=== PATIENT | female | born 1945 | race Caucasian/White ===

== ENCOUNTER → 2016-12-22 | Outpatient (CLI) | payer MEDICARE ==
[~2016-12-22] MED LIST: ACETAMINOPHEN PO; ALLEGRA PO; AMBIEN PO; ARTHROTEC 501 TAB.EC PO; ASPIRIN PO; ASPIRIN81 M1 PO; ASPIRIN81 M2 PO; CALCIUM + D 6001 TA1 PO; CALCIUM 500 + D1 TAB PO; CERTAGEN PO; CLARITIN10 M3 PO; CLARITIN10 MG PO; DIABETIC TUSSIN; DITROPAN X15 MG/BOTT PO; FOLBIC; GLUCOPHAGE XR500 MG PO; HUMALOG100 U/ML SUBQ; HUMULIN N100 U/ML SQ; HUMULIN R100 U/ML; IBUPROFEN PO; IBUPROFEN100 MG PO; INSULIN; KAYEXALATE453.6 GM PO; LANTUS100 U/ML; LASIX20 MG PO; LEVEMIR; LEVOXYL100 MC1 PO; LIPITOR PO; LOC PO; LORTAB 5/500 TA1 TA1 PO; LOVASTATIN20 MG PO; METFORMIN PO; MEVACOR PO; MULTIPLE VITAMI1 T11 PO; NASACORT AQ16.5 GM; NASONEX17 GM; NEURONTIN300 MG PO; NIFEREX-150150 MG PO; NOVOLOG100 U/ML SUBQ; PAXIL PO; PAXIL30 MG PO; PRILOSEC PO; PRILOSEC20 MG PO; SUDAFED PO; SYNTHROID PO; TIZANIDINE HCL4 M1 PO; VITAMIN C500 M1 PO; levoxyl; xyzol
--- NOTE | ~2016-12-22 | BD1 ---
[facility] A Service of [facility] RADIOLOGY TEXT RESULTS PATIENT: MEÑO SPARROW LOCATION: [facility] : 41 UNIT #: [id number] AGE: [address]: Ginger Adan MD SEX: F ORDER DR: [id number] [facility] [address] [place], [place] [address] [id number] O MR#: [id number] Acc #: [id number] NAME: MEÑO SPARROW. : 1945 SEX: F STUDY DATE/TIME: 12/22/2016 10:26 UNIT: [facility] ROOM: STUDY DESCRIPTION: BD Dexa Bone Dens 1+ Site Attending Physician: Ginger Adan M.D. Referring Physician: Ginger Adan M.D. Ordering Physician: Ginger Adan M.D. Primary Care Physician: Ginger Adan M.D. MEDICAL IMAGING REPORT This report is preliminary unless electronic signature is present EXAM DXA scan 12/22/2016 HISTORY Status post menopause with no hormone replacement therapy. Osteopenia. Right hip surgery in 2005. Thyroid medication for 10 years. FINDINGS Bone mineral density in the lumbar spine from L1-L4 was 1.385 g/cm2 which is 3.1 standard deviations above the mean when compared to the young adult reference population which is within the range of normal. This is 5.4 standard deviations above the mean when compared to the age-matched population. Compared with 12/22/2014 there has been a decrease in bone mineral density in the lumbar spine of 9.2%. Bone mineral density in the left femoral neck was 0.45 g/cm2 which is 3.6 standard deviations below the mean when compared to the young adult reference population which is characteristic of osteoporosis. This is 1.6 standard deviations below the mean when compared to the age-matched population. Compared with 12/22/2014 there has been an increase in bone mineral density in the left hip of 4.2%. IMPRESSION Bone mineral density in the lumbar spine within the range of normal and within the left hip characteristic of osteoporosis. Compared with 12/22/2014 there has been a decrease in bone mineral density in the lumbar spine and an increase in bone mineral density in the left hip. Dictated by... Fausto Samaniego M.D. THIS IS AN ELECTRONICALLY VERIFIED REPORT Fausto Samaniego M.D. at 12/23/2016 8:04 AM CAT/[facility] A Service of [facility] RADIOLOGY TEXT RESULTS PATIENT: MEÑO SPARROW LOCATION: [facility] #: [id number] : 41 UNIT #: [id number] AGE: [address]: Ginger Adan MD SEX: F ORDER DR: TD: 12/22/2016 16:30 JOB #: [id number] MEDICAL IMAGING REPORT Page 1 of 1 COPY
== END | disposition home or self-care (01) ==
LOC: CWCC 10:15
DX: M81.0 Age-related osteoporosis without current pathological fracture (principal)
CPT/HCPCS: 77080

== ENCOUNTER 2017-01-07 12:23 | Emergency (ER) | payer MEDICARE ==
--- NOTE | ~2017-01-07 | EKG ---
PATIENT: MEÑO SPARROW UNIT #: [id number] Ventricular Rate: 57 BPM Atrial Rate: 57 BPM P-R Interval: 158 ms QRS Duration: 72 ms Q-T Interval: 426 ms QTC Calculation(Bezet): 414 ms P [place]: 57 degrees Calculated R [place]: -15 degrees Diagnosis Line: Sinus bradycardia Diagnosis Line: Inferior infarct (cited on or before 24-JUN-2011) Diagnosis Line: Abnormal ECG Diagnosis Line: When compared with ECG of 24-JUN-2011 15:48, Diagnosis Line: Minimal criteria for Anterior infarct are no Diagnosis Line: longer Present Diagnosis Line: Non-specific change in ST segment in Lateral leads Diagnosis Line: Diagnosis Line: Confirmed by ALESSIO BAKER MD ([id number]) on Diagnosis Line: 01/08/2017 10:39:09 AM INTERPRETING MD: SAMUEL BROWN
--- NOTE | ~2017-01-07 | CR72 ---
[facility] A Service of [facility] RADIOLOGY TEXT RESULTS PATIENT: MEÑO SPARROW LOCATION: [facility] : 41 UNIT #: [id number] AGE: [address]: Ian Vaughn MD SEX: F ORDER DR: [id number] [facility] [address] [place], [place] [address] [id number] E MR#: [id number] Acc #: [id number] NAME: MEÑO SPARROW. : 1945 SEX: F STUDY DATE/TIME: 01/07/2017 15:01 UNIT: [facility] ROOM: STUDY DESCRIPTION: CR Chest Single View Portable Attending Physician: Ian Vaughn M.D. Ordering Physician: Ian Vaughn M.D. Primary Care Physician: Ginger Adan M.D. MEDICAL IMAGING REPORT This report is preliminary unless electronic signature is present EXAM Portable chest. HISTORY Upper posterior chest pain on the right extending toward the shoulder over the past week. TECHNIQUE A single view of the chest was obtained and compared with 01/07/2012. FINDINGS Cardiomegaly is again noted and unchanged. The lungs are clear with normal vascular markings and no pleural fluid is seen. IMPRESSION Cardiomegaly. No change from the previous exam. Dictated by... Aubrey Chaudhary M.D. THIS IS AN ELECTRONICALLY VERIFIED REPORT Aubrey Chaudhary M.D. at 01/08/2017 7:30 AM HILARIO/lopez TD: 01/07/2017 17:06 JOB #: [id number] MEDICAL IMAGING REPORT Page 1 of 1 COPY
--- NOTE | ~2017-01-07 | CT16 ---
[facility] A Service of [facility] RADIOLOGY TEXT RESULTS PATIENT: MEÑO SPARROW LOCATION: [facility] : 41 UNIT #: [id number] AGE: [address]: Ian Vaughn MD SEX: F ORDER DR: [id number] [facility] [address] [place], [place] [address] [id number] E MR#: [id number] Acc #: [id number] NAME: MEÑO SPARROW : 1945 SEX: F STUDY DATE/TIME: 01/07/2017 16:39 UNIT: [facility] ROOM: STUDY DESCRIPTION: CT Angio Chest for PE Attending Physician: Ian Vaughn M.D. Ordering Physician: Ian Vaughn M.D. Primary Care Physician: Ginger Adan M.D. MEDICAL IMAGING REPORT This report is preliminary unless electronic signature is present EXAM CT angiography chest for PE HISTORY No D-dimer ordered. Right shoulder pain, right hip pain x today. Diabetes. TECHNIQUE CT pulmonary angiography performed with intravenous administration 80 cc Isovue-[id number]. 3-D reconstructions performed through the pulmonary arteries. This CT exam was performed with one or more of the following radiation dose reduction techniques: automatic exposure control, adjustment of mA and/or kV according to patient size, and iterative reconstruction. COMPARISON STUDIES No prior CT chest for comparison. FINDINGS Thyroid unremarkable. No axillary mediastinal or hilar adenopathy. Heart normal in size. Small pericardial effusion, most pronounced along the anterior aspect the heart measuring about 7-8 mm in width. No pleural effusions. Liver shows no acute-appearing abnormality. Uncomplicated cholelithiasis. Spleen, pancreas, adrenal glands unremarkable. There is mild pyelocaliectasis suggested in the left kidney, probably normal physiologic state for this patient. There is no perinephric inflammatory change. Kidneys are incompletely visualized. No upper abdominal adenopathy. Somewhat patulous esophagus. No focal esophageal abnormality. Visualized portions of stomach, small bowel and colon notable for uncomplicated colonic diverticulosis. Pulmonary parenchyma shows linear dependent atelectasis or scarring at the bilateral lung bases. There is some mild bronchial wall prominence in the lungs, more STS. [facility] A Service of [facility] RADIOLOGY TEXT RESULTS PATIENT: MEÑO SPARROW LOCATION: [facility] #: [id number] : 41 UNIT #: [id number] AGE: [address]: Ian Vaughn MD SEX: F ORDER DR: pronounced in the central lung zones. This could be a reflection of bronchitis with acute or chronic components. There are some areas of mild bronchiectasis, particularly the inferior lingular segment but there is no mucous plugging. No suspicious nodule. Prior cervicothoracic spinal fusion. There is no acute-appearing bony abnormality. Degenerative changes in the spine. The pulmonary arteries are well opacified. No PE. No evidence of aortic aneurysm or dissection. There are coronary arterial and systemic atherosclerotic arterial calcifications. The visualized opacified branch vessels appear patent. IMPRESSION 1. No PE. 2. No evidence of aortic aneurysm or dissection. 3. Linear scarring or atelectasis in the dependent lungs bilaterally. 4. Mild bronchial wall thickening in the lungs, more pronounced in the central lung zones. This could be a reflection of reactive airway disease or bronchitis with either acute or chronic components. 5. There is some very mild bronchiectasis in the lower lung zones, particularly in the inferior lingular segment. There is no mucous plugging. 6. Small pericardial effusion, predominately along the anterior aspect of the heart, measuring 7-8 mm in thickness. 7. Atherosclerotic arterial calcifications in coronary and systemic circulation. 8. Uncomplicated cholelithiasis. 9. Partial visualization left kidney suggest mild pyelocaliectasis. I have no prior imaging of kidneys for comparison. There is no left perinephric inflammatory change. I suspect this is the normal physiologic appearance of the left kidney. Correlate clinically. This could be further evaluated with elective ultrasound or CT abdomen and pelvis. 10. No acute bony abnormality. Degenerative changes in the spine. Evidence of prior lower cervical/upper thoracic spine fixation. Dictated by... Dajuan Cabrera M.D. THIS IS AN ELECTRONICALLY VERIFIED REPORT Dajuan Cabrera M.D. at 01/07/2017 10:43 PM ZULEMA/jhon TD: 01/07/2017 19:38 JOB #: [id number] MEDICAL IMAGING REPORT Page 1 of 1 COPY
[2017-01-07 15:19] LABS: BASOPHIL% 0.5 % (0-2.5); EOSINOPHIL# 0.4 X10e3 (0-0.7); EOSINOPHIL% 6.3 % (0.0-7.0); HEMATOCRIT 32.7 % (35.0-45.0); HEMOGLOBIN 10.4 gm/dL (12.0-16.0); LYMPHOCYTE# 1.4 X10e3 (1.0-3.5); LYMPHOCYTE% 20.8 % (17.0-45.0); MEAN CELL VOLUME 93.9 FL (83-96); MEAN CORPUSCULAR HEMOGLOBIN 29.8 PG (28-34); MEAN CORPUSCULAR HGB CONC 31.8 g/dL (30-36); MEAN PLATELET VOLUME 8.9 FL (6.5-11.5); MONOCYTE# 0.6 X10e3 (0-1.0); NEUTROPHIL# 4.3 X10e3 (1.5-7.1); NEUTROPHIL% 63.4 % (40-75); PLATELET COUNT 282 X10e3 (140-420); RED BLOOD COUNT 3.49 X10e (3.90-5.30); RED CELL DISTRIBUTION WIDTH 15.3 % (11.0-15.5); WHITE BLOOD COUNT 6.8 X10e3 (4.0-10.5)
[2017-01-07 15:23] LABS: DIFF IND NO
[2017-01-07 15:31] LABS: INR 1.1; PROTHROMBIN TIME (PATIENT) 11.9 SECONDS (10.0-11.7)
[2017-01-07 15:34] LABS: POC - TROPONIN <0.05 ng/mL (<=0.05)
[2017-01-07 15:41] LABS: ALBUMIN SERUM 3.5 g/dL (3.5-5.0); BILIRUBIN, DIRECT 0.1 mg/dL (0.0-0.2); BILIRUBIN,INDIRECT 0.2 mg/dL (0.0-0.9); BILIRUBIN,TOTAL 0.3 mg/dL (0.2-2.0); BUN/CREATININE RATIO 27.77; CALCIUM SERUM 9.4 mg/dL (8.4-10.2); CREATININE SERUM 0.9 mg/dL (0.6-1.4); GLOM FILT RATE Estimated 63.5 mL/min (>60); MAGNESIUM 1.9 mg/dL (1.6-3.0)
[2017-01-07 18:02] LABS: POC - CKMB 4.1 ng/mL (0.0-7.9); POC - TROPONIN <0.05 ng/mL (<=0.05)
== END 2017-01-07 18:19 | disposition home or self-care (01) ==
LOC: CED 12:23
PROVIDERS: Emergency Medicine
DX: M54.6 Pain in thoracic spine (principal); E11.40 Type 2 diabetes mellitus with diabetic neuropathy, unspecified; I10 Essential (primary) hypertension; F32.9 Major depressive disorder, single episode, unspecified; Z88.2 Allergy status to sulfonamides; Z88.5 Allergy status to narcotic agent; Z79.01 Long term (current) use of anticoagulants
CPT/HCPCS: 36415; 71010; 71275; 80048; 80076; 82553; 82947; 83735; 84484; 85025; 85610; 85730; 93005; 99284; J3010; Q9967